=== PATIENT | female | born 1955 | race Caucasian/White ===

== ENCOUNTER 2017-04-18 15:35 | Emergency (ER) | payer MEDICARE, MEDICAID ==
--- NOTE | 2017-04-18 16:24 | EDM.PDOC ---
ED HPI GENERAL MEDICAL PROBLEM - General Chief Complaint: General Stated Complaint: increased anxiety Time Seen by Provider: 04/18/17 15:55 Source of Information: Reports: Patient History Limitations: Reports: No Limitations - History of Present Illness INITIAL COMMENTS - FREE TEXT/NARRATIVE: Patient is here for help with anxiety exacerbation. Granddaughter recently while riding her bike, is tomorrow. Patient told by daughter that she was not welcome at . Patient says that her usual 1mg Ativan TID PRN is not helping. Denies being suicidal or homicidal. No other complaints or health change reported. Denies other psych changes such as hallucinations/hearing voices. She feels very stressed and is tearful. - Related Data Allergies Allergy/AdvReac Type Severity Reaction Status Date / Time allopurinol Allergy Renal Verified 04/18/17 15:48 Insufficiency amoxicillin [Amoxicillin] Allergy Hypertensio Verified 04/18/17 15:48 n ampicillin Allergy Hypertensio Verified 04/18/17 15:48 n atorvastatin [From Lipitor] Allergy Cannot Verified 04/18/17 15:48 Remember azithromycin Allergy Burning on Verified 04/18/17 15:48 [From Zithromax Z-Dangelo] Urination codeine Allergy Abdominal Verified 04/18/17 15:48 Pain metaxalone [From Skelaxin] Allergy Itching Verified 04/18/17 15:48 Home Meds: Home Meds LORazepam [Ativan] 1 mg PO TID PRN 09/26/13 [History] Cholecalciferol (Vitamin D3) [Vitamin D3] 2,000 units PO QAM 10/07/13 [History] amLODIPine [Norvasc] 10 mg PO QAM 10/07/13 [History] Magnesium Oxide/Mag AA Chelate [Magnesium] 300 mg PO QPM 12/23/15 [History] Metoprolol Tartrate [Lopressor] 100 mg PO BID 12/23/15 [History] Cyanocobalamin (Vitamin B-12) [Vitamin B-12] 1,000 mcg IM ASDIRECTED 03/15/16 [ History] Omeprazole 20 mg PO BIDAC #60 cap.cr 06/10/16 [Rx] Aspirin 81 mg PO BRK 08/23/16 [History] Multivitamin [Multi-Day Vitamins] 1 each PO DAILY 08/23/16 [History] Zolpidem Tartrate [Zolpidem Tartrate] 10 mg PO TID 04/18/17 [History] Past Medical History HEENT History: Reports: Impaired Vision, Sinusitis, Other (See Below) Other HEENT History: Reading glasses Cardiovascular History: Reports: Arrhythmia, High Cholesterol, Hypertension, Other (See Below) Other Cardiovascular History: Nonspecific tachycardia, hyperlipidemia controlled with diet with previous gastric bypass Respiratory History: Reports: COPD, Intubation, Previous, Sleep Apnea, Other ( See Below) Other Respiratory History: COPD by chest x-ray with negative PFTs, not using oxygen or CPAP for her sleep apnea Gastrointestinal History: Reports: Cholelithiasis, Chronic Constipation, Gastritis, GERD, Hiatal Hernia Genitourinary History: Reports: Chronic Renal Insuffiency, Renal Calculus, UTI, Recurrent, Other (See Below) Other Genitourinary History: Renal insufficiency from allopurinol in the past however resolved at this time, right sided urolithiasis initially diagnosed on with spontaneous passage 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: Endometriosis, Other OB/BYN History: Endometriosis requiring surgery, surgical menopause, Full term without complications during pregnancies or deliveries Musculoskeletal History: Reports: Arthritis, Back Pain, Chronic, Fibromyalgia, Gout, Neck Pain, Chronic, Osteoarthritis, Osteoporosis, RA Neurological History: Reports: Concussion, Other (See Below) Other Neuro History: 2 previous head concussions initially at about age 19 then in about 1990 Psychiatric History: Reports: Anxiety, Depression, Panic Attack Endocrine/Metabolic History: Reports: Diabetes, Type II, Multinodular Thyroid, Obesity/BMI 30+, Osteoporosis, Other (See Below) Other Endocrine/Metabolic History: AODM previously treated however now diet controlled after gastric bypass, multinodular thyroid diagnosed on 04/18/13 with every 6 month thyroid ultrasound at this time Hematologic History: Reports: B12 Deficiency, Other (See Below) Other Hematologic History: Note Gastric bypass Immunologic History: Reports: None. Denies: AIDS, HIV, SLE Oncologic (Cancer) History: Reports: None. Denies: Basal Cell Carcinoma, Cervix , Hodgkin's Lymphoma, Leukemia, Lymphoma, Malignant Melanoma, Metastatic, Non- Hodgkin's Lymphoma Dermatologic History: Reports: Urticaria, Other (See Below) Other Dermatologic History: Recurrent urticaria since 05/11/16 - Infectious Disease History Infectious Disease History: Reports: Chicken Pox - Past Surgical History HEENT Surgical History: Reports: Adenoidectomy, Oral Surgery, Tonsillectomy, Other (See Below) GI Surgical History: Reports: Appendectomy, Bariatric Procedure, Cholecystectomy , EGD, Lysis of Adhesions, Other (See Below) Female Surgical History: Reports: Breast Biopsy, D&C, Endometrial Ablation, Hysterectomy, Salpingo-Oophorectomy, Tubal Ligation, Other (See Below) Endocrine Surgical History: Reports: Thyroid Biopsy, Other (See Below) Musculoskeletal Surgical History: Reports: Carpal Tunnel, Shoulder Surgery, Other (See Below) Oncologic Surgical History: Reports: Biopsy of Breast, Other (See Below) - Past Imaging History Past Imaging History: Reports: Bone Scan, Cardiac Echo, CAT Scan, Cystoscopy, DEXA Scan, Mammogram, PFT, Stress Testing, Ultrasound, Venous Doppler Social & Family History - Tobacco Use Smoking Status *Q: Never Smoker Second Hand Smoke Exposure: No - Caffeine Use Caffeine Use: Reports: None. Denies: Coffee, Energy Drinks, Soda, Tea - Alcohol Use Days Per Week of Alcohol Use: 0 (No previous DWIs, problems with alcohol abuse, etc.) Number of Drinks Per Day: 0 Total Drinks Per Week: 0 - Recreational Drug Use Recreational Drug Use: No Drug Use in Last 12 Months: No - Living Situation & Occupation Living situation: Reports: Occupation: Disabled ED ROS GENERAL - Review of Systems Review Of Systems: ROS reveals no pertinent complaints other than HPI. ED EXAM, GENERAL - Physical Exam Exam: See Below Exam Limited By: No Limitations General Appearance: Alert, Obese, Other (tearful. ) Eye Exam: Bilateral Eye: EOMI, PERRL Head: Atraumatic, Normocephalic Neck: Supple, Full Range of Motion Respiratory/Chest: No Respiratory Distress Neurological: Alert, Oriented, Normal Cognition, Normal Gait Psychiatric: Tearful Skin Exam: Warm, Dry, Intact, Normal Color Course - Vital Signs Last Recorded V/S: Last Vital Signs Temp 36.8 C 04/18/17 15:48 Pulse 91 04/18/17 15:48 Resp 20 04/18/17 15:48 BP 141/83 H 04/18/17 15:48 Pulse Ox 97 04/18/17 15:48 - Re-Assessments/Exams Free Text/Narrative Re-Assessment/Exam: 04/18/17 16:34 Time spent sitting with and visiting with patient. She received news that she would be allowed to attend the tomorrow. This helped significantly with patient's complaint. She did receive an ER stock bottle of Valium 10mg tabs. She is to try to substitute Valium for Ativan at 5mg dose over the next few days and see if it helps her acute anxiety reaction to the and of her granddaughter. She may then resume her usual Ativan PRN. Patient is agreeable with this plan. Departure - Departure Time of Disposition: 16:22 Disposition: Home, Self-Care 01 Condition: Good Clinical Impression: Mixed anxiety and depressive disorder - Discharge Information Forms: ED Department Discharge Additional Instructions: Hold Ativan and instead try the Valium for your anxiety over the next few days. You should start with 1/2 a tablet for the dose. Take it once every 8-12 hours as needed for anxiety. You may restart the Ativan after you are through with the Valium. Follow up as needed if you have worsening problems.
== END 2017-04-18 16:40 | disposition home or self-care (01) ==
LOC: LL.ED 15:35
CPT/HCPCS: 99283

== ENCOUNTER 2018-02-07 18:49 | Emergency (ER) | payer MEDICARE, MEDICAID ==
[2018-02-07 19:12] VITALS: BP 142/65
--- NOTE | 2018-02-07 20:19 | EDM.PDOC ---
ED HPI GENERAL MEDICAL PROBLEM - General Chief Complaint: Lower Extremity Injury/Pain Stated Complaint: Right ankle pain/lump Time Seen by Provider: 02/07/18 18:55 Source of Information: Reports: Patient History Limitations: Reports: No Limitations - History of Present Illness INITIAL COMMENTS - FREE TEXT/NARRATIVE: Patient is a 62-year-old who is well known to myself was at the barn and affect was leaving the barn and she stopped to clean her bruits and developed severe pain on her right foot she developed a little lump on the medial aspect of the ankle Onset: Sudden Duration: Minutes:, Intermittent Location: Reports: Lower Extremity, Right Right Ankle Pain Score (Numeric/FACES): 3 - Related Data Allergies Allergy/AdvReac Type Severity Reaction Status Date / Time allopurinol Allergy Renal Verified 02/07/18 18:51 Insufficiency amoxicillin [Amoxicillin] Allergy Hypertensio Verified 02/07/18 18:51 n ampicillin Allergy Hypertensio Verified 02/07/18 18:51 n atorvastatin [From Lipitor] Allergy Cannot Verified 02/07/18 18:51 Remember azithromycin Allergy Burning on Verified 02/07/18 18:51 [From Zithromax Z-Dangelo] Urination codeine Allergy Abdominal Verified 02/07/18 18:51 Pain metaxalone [From Skelaxin] Allergy Itching Verified 02/07/18 18:51 Home Meds: Home Meds LORazepam [Ativan] 1 mg PO TID PRN 09/26/13 [History] Cholecalciferol (Vitamin D3) [Vitamin D3] 2,000 units PO QAM 10/07/13 [History] amLODIPine [Norvasc] 10 mg PO QAM 10/07/13 [History] Magnesium Oxide/Mag AA Chelate [Magnesium] 300 mg PO QPM 12/23/15 [History] Metoprolol Tartrate [Lopressor] 100 mg PO BID 12/23/15 [History] Cyanocobalamin (Vitamin B-12) [Vitamin B-12] 1,000 mcg IM ASDIRECTED 03/15/16 [ History] Omeprazole 20 mg PO BIDAC #60 cap.cr 06/10/16 [Rx] Aspirin 81 mg PO BRK 08/23/16 [History] Multivitamin [Multi-Day Vitamins] 1 each PO DAILY 08/23/16 [History] Zolpidem Tartrate 7.5 mg PO BEDTIME 04/18/17 [History] Past Medical History HEENT History: Reports: Impaired Vision, Sinusitis, Other (See Below) Other HEENT History: Reading glasses Cardiovascular History: Reports: Arrhythmia, High Cholesterol, Hypertension, Other (See Below) Other Cardiovascular History: Nonspecific tachycardia, hyperlipidemia controlled with diet with previous gastric bypass Respiratory History: Reports: COPD, Intubation, Previous, Sleep Apnea, Other ( See Below) Other Respiratory History: COPD by chest x-ray with negative PFTs, not using oxygen or CPAP for her sleep apnea Gastrointestinal History: Reports: Cholelithiasis, Chronic Constipation, Gastritis, GERD, Hiatal Hernia Genitourinary History: Reports: Chronic Renal Insuffiency, Renal Calculus, UTI, Recurrent, Other (See Below) Other Genitourinary History: Renal insufficiency from allopurinol in the past however resolved at this time, right sided urolithiasis initially diagnosed on with spontaneous passage 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: Endometriosis, Other OB/BYN History: Endometriosis requiring surgery, surgical menopause, Full term without complications during pregnancies or deliveries Musculoskeletal History: Reports: Arthritis, Back Pain, Chronic, Fibromyalgia, Gout, Neck Pain, Chronic, Osteoarthritis, Osteoporosis, RA Neurological History: Reports: Concussion, Other (See Below) Other Neuro History: 2 previous head concussions initially at about age 19 then in about 1990 Psychiatric History: Reports: Anxiety, Depression, Panic Attack Endocrine/Metabolic History: Reports: Diabetes, Type II, Multinodular Thyroid, Obesity/BMI 30+, Osteoporosis, Other (See Below) Other Endocrine/Metabolic History: AODM previously treated however now diet controlled after gastric bypass, multinodular thyroid diagnosed on 04/18/13 with every 6 month thyroid ultrasound at this time Hematologic History: Reports: B12 Deficiency, Other (See Below) Other Hematologic History: Note Gastric bypass Immunologic History: Reports: None Oncologic (Cancer) History: Reports: None Dermatologic History: Reports: Urticaria, Other (See Below) Other Dermatologic History: Recurrent urticaria since 05/11/16 - Infectious Disease History Infectious Disease History: Reports: Chicken Pox - Past Surgical History Head Surgeries/Procedures: Reports: None HEENT Surgical History: Reports: Adenoidectomy, Oral Surgery, Tonsillectomy, Other (See Below) GI Surgical History: Reports: Appendectomy, Bariatric Procedure, Cholecystectomy , EGD, Lysis of Adhesions, Other (See Below) Female Surgical History: Reports: Breast Biopsy, D&C, Endometrial Ablation, Hysterectomy, Salpingo-Oophorectomy, Tubal Ligation, Other (See Below) Endocrine Surgical History: Reports: Thyroid Biopsy, Other (See Below) Musculoskeletal Surgical History: Reports: Carpal Tunnel, Shoulder Surgery, Other (See Below) Oncologic Surgical History: Reports: Biopsy of Breast, Other (See Below) - Past Imaging History Past Imaging History: Reports: Bone Scan, Cardiac Echo, CAT Scan, Cystoscopy, DEXA Scan, Mammogram, PFT, Stress Testing, Ultrasound, Venous Doppler Social & Family History - Caffeine Use Caffeine Use: Reports: None - Living Situation & Occupation Living situation: Reports: Occupation: Disabled Review of Systems - Review of Systems Review Of Systems: See Below Constitutional: Reports: No Symptoms Eyes: Reports: No Symptoms Ears: Reports: No Symptoms Nose: Reports: No Symptoms Mouth/Throat: Reports: No Symptoms Respiratory: Reports: No Symptoms Cardiovascular: Reports: No Symptoms GI/Abdominal: Reports: No Symptoms Genitourinary: Reports: No Symptoms Musculoskeletal: Reports: Leg Pain (Right) Skin: Reports: No Symptoms Neurological: Reports: No Symptoms Psychiatric: Reports: No Symptoms ED EXAM, GENERAL - Physical Exam Exam: See Below Exam Limited By: No Limitations General Appearance: Alert, WD/WN, No Apparent Distress Ears: Normal External Exam, Normal Canal, Hearing Grossly Normal, Normal TMs Ear Exam: Bilateral Ear: Auricle Normal, Canal Normal, TM normal Nose: Normal Inspection, Normal Mucosa, No Blood Throat/Mouth: Normal Inspection, Normal Lips, Normal Teeth, Normal Gums, Normal Oropharynx, Normal Voice, No Airway Compromise Head: Atraumatic, Normocephalic Neck: Normal Inspection, Supple, Non-Tender, Full Range of Motion Respiratory/Chest: No Respiratory Distress, Lungs Clear, Normal Breath Sounds, No Accessory Muscle Use, Chest Non-Tender Cardiovascular: Normal Peripheral Pulses, Regular Rate, Rhythm, No Edema, No Gallop, No JVD, No Murmur, No Rub GI/Abdominal: Normal Bowel Sounds, Soft, Non-Tender, No Organomegaly, No Distention, No Abnormal Bruit, No Mass (Female) Exam: Deferred Rectal (Female) Exam: Deferred Back Exam: Normal Inspection, Full Range of Motion, NT Extremities: Leg Pain (Right ankle pain x-ray negative) Neurological: Alert, Oriented, CN II-XII Intact, Normal Cognition, Normal Gait, Normal Reflexes, No Motor/Sensory Deficits Psychiatric: Normal Affect, Normal Mood Lymphatic: No Adenopathy Course - Vital Signs Last Recorded V/S: Last Vital Signs Temp 98.2 F 02/07/18 19:10 Pulse 78 02/07/18 19:10 Resp 16 02/07/18 19:10 BP 142/65 H 02/07/18 19:10 Pulse Ox 97 02/07/18 19:10 - Orders/Labs/Meds Orders: Active Orders 24 hr Category Date Time Status Ankle Min 3V Rt [CR] Stat Exams 02/07/18 19:28 Taken Departure - Departure Time of Disposition: 20:18 Disposition: Home, Self-Care 01 Condition: Fair Clinical Impression: Rupture of muscle - Discharge Information Instructions: Muscle Strain, [id number] Referrals: Claude Carlos MD [Primary Care Provider] - Care Plan Goals: Patient will be going home on a air splint she is to use it until better follow- up in the office as needed - My Orders Last 24 Hours: My Active Orders 02/07/18 19:28 Ankle Min 3V Rt [CR] Stat - Assessment/Plan Last 24 Hours: My Active Orders 02/07/18 19:28 Ankle Min 3V Rt [CR] Stat
== END 2018-02-07 20:30 | disposition home or self-care (01) ==
LOC: LL.ED 18:49
DX: M62.171 Other rupture of muscle (nontraumatic), right ankle and foot (principal); I12.9 Hypertensive chronic kidney disease with stage 1 through stage 4 chronic kidney disease, or unspecified chronic kidney disease; N18.9 Chronic kidney disease, unspecified; E11.22 Type 2 diabetes mellitus with diabetic chronic kidney disease; E78.00 Pure hypercholesterolemia, unspecified; Z88.1 Allergy status to other antibiotic agents; Z88.5 Allergy status to narcotic agent; Z88.8 Allergy status to other drugs, medicaments and biological substances; Z79.899 Other long term (current) drug therapy; Z79.82 Long term (current) use of aspirin
CPT/HCPCS: 73610-RT; 99283

== ENCOUNTER 2018-03-21 16:46 | Emergency (ER) | payer MEDICARE, MEDICAID ==
[2018-03-21 16:51] VITALS: BP 150/66
[2018-03-21] MEDS ORDERED: GI Cocktail Oral Solution 30 ML PO ONE (17:05)
[2018-03-21] MEDS ORDERED: Sodium Chloride 0.9% 10 ML Syringe FLUSH PRN (17:05)
[2018-03-21] MEDS ORDERED: Sodium Chloride 0.9% 1,000 ML IV ONE (17:50)
[2018-03-21 17:54] LABS: CHLORIDE,CL 105 mmol/L (98-107); SODIUM,NA 140 mmol/L (136-145)
--- NOTE | 2018-03-21 18:05 | EDM.PDOC ---
ED HPI GENERAL MEDICAL PROBLEM - General Chief Complaint: General Stated Complaint: hot flashes Time Seen by Provider: 03/21/18 17:21 Source of Information: Reports: Patient History Limitations: Reports: No Limitations - History of Present Illness INITIAL COMMENTS - FREE TEXT/NARRATIVE: Patient comes to ER complaining of approximately 8 episodes of "hot flashes" today, the longest of which was approximately 5 minutes. She says that she has not had hot flashes like this before. Originally she came in complaining of SOB to nurse. She then recanted that when examiner was interviewing her and said that she did not have shortness of breath. She amended her complaint to say that it felt like she had epigastric nausea at the time of the hot flash. Other accompanying complaints included feeling tightness/throbbing sensation at back of head as well as left side of tongue feeling a bit numb at same time of hot flash. She did go on to say that she had some nerve damage on the left side when they surgically removed her thyroid years ago and left sided tongue numbness is not a new problem. All of the above went away when the hot flash went away. ROS performed. She did say that she started 10mg Celexa daily last Thursday. No other medication/supplement changes. No food changes. She has felt more tired than usual today. She did have a small amount of loose stools. No other acute changes reported. - Related Data Allergies Allergy/AdvReac Type Severity Reaction Status Date / Time allopurinol Allergy Renal Verified 03/21/18 16:56 Insufficiency amoxicillin [Amoxicillin] Allergy Hypertensio Verified 03/21/18 16:56 n ampicillin Allergy Hypertensio Verified 03/21/18 16:56 n atorvastatin [From Lipitor] Allergy Cannot Verified 03/21/18 16:56 Remember azithromycin Allergy Burning on Verified 03/21/18 16:56 [From Zithromax Z-Dangelo] Urination codeine Allergy Abdominal Verified 03/21/18 16:56 Pain metaxalone [From Skelaxin] Allergy Itching Verified 03/21/18 16:56 Home Meds: Home Meds LORazepam [Ativan] 1 mg PO TID PRN 09/26/13 [History] Cholecalciferol (Vitamin D3) [Vitamin D3] 2,000 units PO QAM 10/07/13 [History] amLODIPine [Norvasc] 10 mg PO QAM 10/07/13 [History] Magnesium Oxide/Mag AA Chelate [Magnesium] 300 mg PO QPM 12/23/15 [History] Metoprolol Tartrate [Lopressor] 100 mg PO BID 12/23/15 [History] Cyanocobalamin (Vitamin B-12) [Vitamin B-12] 1,000 mcg IM ASDIRECTED 03/15/16 [ History] Omeprazole 20 mg PO BIDAC #60 cap.cr 06/10/16 [Rx] Aspirin 81 mg PO BRK 08/23/16 [History] Multivitamin [Multi-Day Vitamins] 1 each PO DAILY 08/23/16 [History] Zolpidem Tartrate 7.5 mg PO BEDTIME 04/18/17 [History] Ca Carbonate/Vitamin D3/Vit K [Calcium + D Soft Chewable Tab] 1 each PO DAILY [History] Citalopram Hydrobromide [Celexa] 1 tab PO QAM 03/21/18 [History] Past Medical History HEENT History: Reports: Impaired Vision, Sinusitis, Other (See Below) Other HEENT History: Reading glasses Cardiovascular History: Reports: Arrhythmia, High Cholesterol, Hypertension, Other (See Below) Other Cardiovascular History: Nonspecific tachycardia, hyperlipidemia controlled with diet with previous gastric bypass Respiratory History: Reports: COPD, Intubation, Previous, Sleep Apnea, Other ( See Below) Other Respiratory History: COPD by chest x-ray with negative PFTs, not using oxygen or CPAP for her sleep apnea Gastrointestinal History: Reports: Cholelithiasis, Chronic Constipation, Gastritis, GERD, Hiatal Hernia Genitourinary History: Reports: Chronic Renal Insuffiency, Renal Calculus, UTI, Recurrent, Other (See Below) Other Genitourinary History: Renal insufficiency from allopurinol in the past however resolved at this time, right sided urolithiasis initially diagnosed on with spontaneous passage 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: Reports: Endometriosis, Other OB/BYN History: Endometriosis requiring surgery, surgical menopause, Full term without complications during pregnancies or deliveries Musculoskeletal History: Reports: Arthritis, Back Pain, Chronic, Fibromyalgia, Gout, Neck Pain, Chronic, Osteoarthritis, Osteoporosis, RA Neurological History: Reports: Concussion, Other (See Below) Other Neuro History: 2 previous head concussions initially at about age 19 then in about 1990 Psychiatric History: Reports: Anxiety, Depression, Panic Attack Endocrine/Metabolic History: Reports: Diabetes, Type II, Multinodular Thyroid, Obesity/BMI 30+, Osteoporosis, Other (See Below) Other Endocrine/Metabolic History: AODM previously treated however now diet controlled after gastric bypass, multinodular thyroid diagnosed on 04/18/13 with every 6 month thyroid ultrasound at this time Hematologic History: Reports: B12 Deficiency, Other (See Below) Other Hematologic History: Note Gastric bypass Immunologic History: Reports: None Oncologic (Cancer) History: Reports: None Dermatologic History: Reports: Urticaria, Other (See Below) Other Dermatologic History: Recurrent urticaria since 05/11/16 - Infectious Disease History Infectious Disease History: Reports: Chicken Pox - Past Surgical History Head Surgeries/Procedures: Reports: None HEENT Surgical History: Reports: Adenoidectomy, Oral Surgery, Tonsillectomy, Other (See Below) GI Surgical History: Reports: Appendectomy, Bariatric Procedure, Cholecystectomy , EGD, Lysis of Adhesions, Other (See Below) Female Surgical History: Reports: Breast Biopsy, D&C, Endometrial Ablation, Hysterectomy, Salpingo-Oophorectomy, Tubal Ligation, Other (See Below) Endocrine Surgical History: Reports: Thyroid Biopsy, Other (See Below) Musculoskeletal Surgical History: Reports: Carpal Tunnel, Shoulder Surgery, Other (See Below) Oncologic Surgical History: Reports: Biopsy of Breast, Other (See Below) - Past Imaging History Past Imaging History: Reports: Bone Scan, Cardiac Echo, CAT Scan, Cystoscopy, DEXA Scan, Mammogram, PFT, Stress Testing, Ultrasound, Venous Doppler Social & Family History - Caffeine Use Caffeine Use: Reports: None - Recreational Drug Use Recreational Drug Use: No Drug Use in Last 12 Months: No - Living Situation & Occupation Living situation: Reports: Occupation: Disabled ED [facility] - Review of Systems Review Of Systems: See Below Constitutional: Reports: Fatigue. Denies: Fever, Chills, Malaise, Weakness, Night Sweats, Diaphoresis, Decreased Appetite, Weight Loss HEENT: Reports: Other (tongue numb in back left during hot flashes) Respiratory: Reports: No Symptoms Cardiovascular: Reports: No Symptoms. Denies: Chest Pain GI/Abdominal: Reports: Diarrhea, Nausea (during hot flashes). Denies: Abdominal Pain, Decreased Appetite, Difficulty Swallowing, Distension, Hematemesis, Hematochezia, Vomiting : Reports: No Symptoms Musculoskeletal: Reports: Other (tightness in back of head/neck during hot flashes) Skin: Reports: No Symptoms Neurological: Reports: No Symptoms. Denies: Headache Psychiatric: Reports: No Symptoms Hematologic/Lymphatic: Reports: No Symptoms ED EXAM, GENERAL - Physical Exam Exam: See Below Exam Limited By: No Limitations General Appearance: Alert, WD/WN, No Apparent Distress, Obese Eye Exam: Bilateral Eye: EOMI, Normal Inspection, PERRL Ears: Normal External Exam, Normal Canal, Hearing Grossly Normal, Normal TMs Nose: Normal Inspection Throat/Mouth: Normal Inspection, Normal Lips, Normal Voice, No Airway Compromise Head: Atraumatic, Normocephalic Neck: Normal Inspection, Supple, Non-Tender, Full Range of Motion. No: Carotid Bruit, Lymphadenopathy (L), Lymphadenopathy (R) Respiratory/Chest: No Respiratory Distress, Lungs Clear, Normal Breath Sounds, No Accessory Muscle Use, Chest Non-Tender Cardiovascular: Normal Peripheral Pulses, Regular Rate, Rhythm, No Murmur Peripheral Pulses: 2+: Radial (L), Radial (R), Dorsalis Pedis (L), Dorsalis Pedis (R) GI/Abdominal: Normal Bowel Sounds, Soft, Non-Tender, No Distention (Female) Exam: Deferred Rectal (Female) Exam: Deferred Back Exam: Normal Inspection Extremities: Normal Inspection, Normal Range of Motion, Non-Tender, Normal Capillary Refill Neurological: Alert, Oriented, CN II-XII Intact, Normal Cognition, Normal Gait, No Motor/Sensory Deficits Psychiatric: Normal Affect, Normal Mood Skin Exam: Warm, Dry, Intact, Normal Color, No Rash EKG INTERPRETATION EKG Date: 03/21/18 Time: 17:16 Rhythm: Other (sinus) Rate (Beats/Min): 64 [place]: Normal P-Wave: Present QRS: Normal ST-T: Normal QT: Normal Comparison: Change From Previous EKG (had occasional PVCs noted, otherwise morphology similar) Course - Vital Signs Last Recorded V/S: Last Vital Signs Temp 36.4 C 03/21/18 16:48 Pulse 66 03/21/18 16:48 Resp 20 03/21/18 16:48 BP 150/66 H 03/21/18 16:48 Pulse Ox 100 03/21/18 16:48 - Orders/Labs/Meds Orders: Active Orders 24 hr Category Date Time Status EKG Documentation Completion [RC] ASDIRECTED Care 03/21/18 17:05 Active Chest 2V [CR] Stat Exams 03/21/18 17:03 Ordered UA W/MICROSCOPIC [URIN] Stat Lab 03/21/18 17:10 Ordered Sodium Chloride 0.9% [Normal Saline] 1,000 ml Med 03/21/18 17:50 Active IV .BOLUS Sodium Chloride 0.9% [Saline Flush] Med 03/21/18 17:05 Active 10 ml FLUSH ASDIRECTED PRN Saline Lock Insert [OM.PC] Routine Oth 03/21/18 17:05 Ordered Medication Orders Sodium Chloride (Normal Saline) 1,000 mls @ 500 mls/hr IV .BOLUS ONE Stop: 03/21/18 19:49 Last Admin: 03/21/18 19:17 Dose: 500 mls/hr Sodium Chloride (Saline Flush) 10 ml FLUSH ASDIRECTED PRN PRN Reason: Keep Vein Open Labs: Laboratory Tests 03/21/18 03/21/18 03/21/18 Range/Units 17:10 17:25 17:25 WBC 8.1 (4.0-10.2) K/uL RBC 4.76 (3.77-5.09) M/uL Hgb 14.1 (11.7-15.5) g/dL Hct 42.2 (34.0-46.0) % MCV 88.7 D (84.0-98.0) fL MCH 29.6 (28.2-33.3) pg MCHC 33.4 (31.7-36.0) g/dL RDW 13.3 (11.2-14.1) % Plt Count 209 (150-350) K/uL Neut % (Auto) 50.5 (45.0-80.0) % Lymph % (Auto) 36.8 (10.0-50.0) % [place] % (Auto) 7.8 (2.0-14.0) % Eos % (Auto) 4.7 (0.0-5.0) % Baso % (Auto) 0.2 (0.0-2.0) % Neut # (Auto) 4.07 (1.40-7.00) K/uL Lymph # (Auto) 2.97 (0.50-3.50) K/uL [place] # (Auto) 0.63 (0.00-1.00) K/uL Eos # (Auto) 0.38 (0.00-0.50) K/uL Baso # (Auto) 0.02 (0.00-0.20) K/uL D-Dimer, Quantitative (0-400) ng/mL Sodium 140 (136-145) mmol/L Potassium 3.5 (3.5-5.1) mmol/L Chloride 105 (98-107) mmol/L Carbon Dioxide 24.1 (21.0-32.0) mmol/L BUN 14 (7-18) mg/dL Creatinine 0.67 (0.51-1.17) mg/dL Est Cr Clr Drug Dosing 83.59 mL/min Estimated GFR (MDRD) > 60 mL/min Glucose 114 H (74-106) mg/dL Calcium 8.7 (8.5-10.1) mg/dL Total Bilirubin 0.4 (0.2-1.0) mg/dL AST 17 (15-37) U/L ALT 34 (12-78) U/L Alkaline Phosphatase 99 (46-116) IU/L Creatine Kinase 78 (26-308) U/L Creatine Kinase Index 1.4 (0.0-2.5) % CK-MB (CK-2) 1.10 (0.00-3.60) ng/mL Troponin I 0.000 (0.000-0.056) ng/mL NT-Pro-B Natriuret Pep 126 H (0-125) pg/mL Total Protein 7.4 (6.4-8.2) g/dL Albumin 3.8 (3.4-5.0) g/dL TSH, Ultra Sensitive (0.358-3.740) mIU/mL Specimen Type Urinvoid Urine Color Yellow Urine Appearance Clear Urine pH 5.5 (5.0-9.0) Ur Specific [place] >= 1.030 (1.005-1.030) Urine Protein Negative (NEGATIVE) mg/dL Urine Glucose (UA) Negative (NEGATIVE) mg/dL Urine Ketones Negative (NEGATIVE) mg/dL Urine Occult Blood Small H (NEGATIVE) Urine Nitrite Negative (NEGATIVE) Urine Bilirubin Negative (NEGATIVE) Urine Urobilinogen 0.2 (0.2-1.0) E.U./dL Ur Leukocyte Esterase Negative (NEGATIVE) Urine RBC 5-10 H /HPF Urine WBC 0-5 /HPF Ur Epithelial Cells Few /LPF Urine Bacteria Few (NONE TO FEW) /HPF 03/21/18 03/21/18 Range/Units 17:25 17:25 WBC (4.0-10.2) K/uL RBC (3.77-5.09) M/uL Hgb (11.7-15.5) g/dL Hct (34.0-46.0) % MCV (84.0-98.0) fL MCH (28.2-33.3) pg MCHC (31.7-36.0) g/dL RDW (11.2-14.1) % Plt Count (150-350) K/uL Neut % (Auto) (45.0-80.0) % Lymph % (Auto) (10.0-50.0) % [place] % (Auto) (2.0-14.0) % Eos % (Auto) (0.0-5.0) % Baso % (Auto) (0.0-2.0) % Neut # (Auto) (1.40-7.00) K/uL Lymph # (Auto) (0.50-3.50) K/uL [place] # (Auto) (0.00-1.00) K/uL Eos # (Auto) (0.00-0.50) K/uL Baso # (Auto) (0.00-0.20) K/uL D-Dimer, Quantitative 244 (0-400) ng/mL Sodium (136-145) mmol/L Potassium (3.5-5.1) mmol/L Chloride (98-107) mmol/L Carbon Dioxide (21.0-32.0) mmol/L BUN (7-18) mg/dL Creatinine (0.51-1.17) mg/dL Est Cr Clr Drug Dosing mL/min Estimated GFR (MDRD) mL/min Glucose (74-106) mg/dL Calcium (8.5-10.1) mg/dL Total Bilirubin (0.2-1.0) mg/dL AST (15-37) U/L ALT (12-78) U/L Alkaline Phosphatase (46-116) IU/L Creatine Kinase (26-308) U/L Creatine Kinase Index (0.0-2.5) % CK-MB (CK-2) (0.00-3.60) ng/mL Troponin I (0.000-0.056) ng/mL NT-Pro-B Natriuret Pep (0-125) pg/mL Total Protein (6.4-8.2) g/dL Albumin (3.4-5.0) g/dL TSH, Ultra Sensitive 3.224 (0.358-3.740) mIU/mL Specimen Type Urine Color Urine Appearance Urine pH (5.0-9.0) Ur Specific [place] (1.005-1.030) Urine Protein (NEGATIVE) mg/dL Urine Glucose (UA) (NEGATIVE) mg/dL Urine Ketones (NEGATIVE) mg/dL Urine Occult Blood (NEGATIVE) Urine Nitrite (NEGATIVE) Urine Bilirubin (NEGATIVE) Urine Urobilinogen (0.2-1.0) E.U./dL Ur Leukocyte Esterase (NEGATIVE) Urine RBC /HPF Urine WBC /HPF Ur Epithelial Cells /LPF Urine Bacteria (NONE TO FEW) /HPF Meds: Medications Generic Name Dose Route Start Last Admin Trade Name Freq PRN Reason Stop Dose Admin Sodium Chloride 1,000 mls @ 500 mls/hr 03/21/18 17:50 03/21/18 19:17 Normal Saline IV 03/21/18 19:49 500 mls/hr .BOLUS ONE Administration Sodium Chloride 10 ml 03/21/18 17:05 Saline Flush FLUSH ASDIRECTED PRN Keep Vein Open Discontinued Medications Generic Name Dose Route Start Last Admin Trade Name Freq PRN Reason Stop Dose Admin Al Hydroxide/Mg Hydroxide 30 ml 03/21/18 17:05 03/21/18 17:38 Gi Cocktail PO 03/21/18 17:06 Not Given ONETIME ONE - Re-Assessments/Exams Free Text/Narrative Re-Assessment/Exam: 03/21/18 19:58 Patient rested comfortably in ER during workup. Drinking, at some snacks. IV NS given when elevated specific gravity of UA noted. Patient admitted to not drinking a lot of fluid today. CBC/Chem/UA/troponin/CKMB/Ddimer/BNP/TSH performed. Overall unremarkable. BNP just a bit above normal level. Chest xray unremarkable. No specific etiology for patient's complaints identified. Cannot rule out possible side effect due to recently started Celexa. Differential discussed with patient. Plan at this time is for her to discontinue the Celexa for now and see if she has further episodes of hot flashes. She has only been on the medication for one week. She can retry the medication in another 1-2 weeks and see if similar hot flashes resurface. She is also to look for any other new changes over the next day or two that may indicate another etiology causing patient's episodes. She is in agreement with the above plan. Departure - Departure Time of Disposition: 21:00 Disposition: Home, Self-Care 01 Condition: Good Clinical Impression: Hot flashes, Feeling abnormal - Discharge Information Referrals: Claude Carlos MD [Primary Care Provider] - Forms: ED Department Discharge Additional Instructions: Consider stopping the Celexa for the next 1-2 weeks as discussed. See if hot flashes also stop. If they do, it could be that they are side effects of the new medication. If the hot flashes persist, or other new problems are noted, follow up as needed for re-evaluation. Recommend waiting a week or two before retrying Celexa and seeing if same hot flashes start again. - My Orders Last 24 Hours: My Active Orders 03/21/18 17:03 Chest 2V [CR] Stat 03/21/18 17:05 EKG Documentation Completion [RC] ASDIRECTED Sodium Chloride 0.9% [Saline Flush] 10 ml FLUSH ASDIRECTED PRN Saline Lock Insert [OM.PC] Routine 03/21/18 17:10 UA W/MICROSCOPIC [URIN] Stat 03/21/18 17:50 Sodium Chloride 0.9% [Normal Saline] 1,000 ml IV .BOLUS - Assessment/Plan Last 24 Hours: My Active Orders 03/21/18 17:03 Chest 2V [CR] Stat 03/21/18 17:05 EKG Documentation Completion [RC] ASDIRECTED Sodium Chloride 0.9% [Saline Flush] 10 ml FLUSH ASDIRECTED PRN Saline Lock Insert [OM.PC] Routine 03/21/18 17:10 UA W/MICROSCOPIC [URIN] Stat 03/21/18 17:50 Sodium Chloride 0.9% [Normal Saline] 1,000 ml IV .BOLUS
== END 2018-03-21 20:35 | disposition home or self-care (01) ==
LOC: LL.ED 16:46
DX: N95.1 Menopausal and female climacteric states (principal); E78.00 Pure hypercholesterolemia, unspecified; J44.9 Chronic obstructive pulmonary disease, unspecified; I12.9 Hypertensive chronic kidney disease with stage 1 through stage 4 chronic kidney disease, or unspecified chronic kidney disease; N18.9 Chronic kidney disease, unspecified; F32.9 Major depressive disorder, single episode, unspecified; E11.22 Type 2 diabetes mellitus with diabetic chronic kidney disease; F41.9 Anxiety disorder, unspecified; Z88.1 Allergy status to other antibiotic agents; Z88.8 Allergy status to other drugs, medicaments and biological substances; Z79.899 Other long term (current) drug therapy; Z79.82 Long term (current) use of aspirin
CPT/HCPCS: 36415; 71046; 80053; 81001; 82550; 82553; 83880; 84443; 84484; 85025; 85379; 93005; 96360; 99284; J7030

== ENCOUNTER 2019-01-22 18:53 | Emergency (ER) | payer MEDICARE, MEDICAID ==
[2019-01-22 19:03] VITALS: BP 131/80
[2019-01-22] MEDS ORDERED: methylPREDNISolone Acetate 40 MG/ML SDV IM ONE (19:23)
--- NOTE | 2019-01-22 19:30 | EDM.PDOC ---
ED HPI GENERAL MEDICAL PROBLEM - General Chief Complaint: Lower Extremity Injury/Pain Stated Complaint: L knee pain Time Seen by Provider: 01/22/19 19:00 Source of Information: Reports: Patient History Limitations: Reports: No Limitations - History of Present Illness INITIAL COMMENTS - FREE TEXT/NARRATIVE: Patient is a 63-year-old who is well known to myself has been seen multiple times in the clinic she's seen Dr. Sheets and Dr. Pereira secondary be of left knee pain and deterioration at this time patient was given synvig injections which and steroids which have helped Onset: Sudden Duration: Hour(s):, Recurring Location: Reports: Lower Extremity, Left Quality: Reports: Ache, Stabbing Severity: Moderate Improves with: Reports: Rest Worsens with: Reports: None Context: Reports: Trauma - Related Data Allergies Allergy/AdvReac Type Severity Reaction Status Date / Time allopurinol Allergy Renal Verified 01/22/19 19:03 Insufficiency amoxicillin [Amoxicillin] Allergy Hypertensio Verified 01/22/19 19:03 n ampicillin Allergy Hypertensio Verified 01/22/19 19:03 n atorvastatin [From Lipitor] Allergy Cannot Verified 01/22/19 19:03 Remember azithromycin Allergy Burning on Verified 01/22/19 19:03 [From Zithromax Z-Dangelo] Urination citalopram [From Celexa] Allergy Hallucinati Verified 01/22/19 19:03 ons codeine Allergy Abdominal Verified 01/22/19 19:03 Pain metaxalone [From Skelaxin] Allergy Itching Verified 01/22/19 19:03 Home Meds: Home Meds LORazepam [Ativan] 1 mg PO TID PRN 09/26/13 [History] Cholecalciferol (Vitamin D3) [Vitamin D3] 2,000 units PO QAM 10/07/13 [History] amLODIPine [Norvasc] 10 mg PO QAM 10/07/13 [History] Magnesium Oxide/Mag AA Chelate [Magnesium] 300 mg PO QPM 12/23/15 [History] Metoprolol Tartrate [Lopressor] 100 mg PO BID 12/23/15 [History] Cyanocobalamin (Vitamin B-12) [Vitamin B-12] 1,000 mcg IM ASDIRECTED 03/15/16 [ History] Omeprazole 20 mg PO BIDAC #60 cap.cr 06/10/16 [Rx] Aspirin 81 mg PO BRK 08/23/16 [History] Multivitamin [Multi-Day Vitamins] 1 each PO DAILY 08/23/16 [History] Zolpidem Tartrate 7.5 mg PO BEDTIME 04/18/17 [History] Ca Carbonate/Vitamin D3/Vit K [Calcium + D Soft Chewable Tab] 1 each PO DAILY [History] Melatonin 7.5 mg PO BEDTIME 07/19/18 [History] Triamcinolone Acetonide [Triamcinolone Acetonide 0.1% Crm] 1 applic TOP BID [History] Past Medical History HEENT History: Reports: Impaired Vision, Sinusitis, Other (See Below) Other HEENT History: Reading glasses. Cardiovascular History: Reports: Arrhythmia, High Cholesterol, Hypertension, PVD , Other (See Below) Other Cardiovascular History: Nonspecific tachycardia, hyperlipidemia controlled with diet with previous gastric bypass. Respiratory History: Reports: Bronchitis, Recurrent, COPD, Intubation, Previous , Pneumonia, Recurrent, Sleep Apnea, Other (See Below) Other Respiratory History: COPD by chest x-ray with negative PFTs, not using oxygen or CPAP for her sleep apnea Gastrointestinal History: Reports: Cholelithiasis, Chronic Constipation, Gastritis, GERD, Hiatal Hernia Genitourinary History: Reports: Chronic Renal Insuffiency, Renal Calculus, UTI, Recurrent, Other (See Below) Other Genitourinary History: Renal insufficiency from allopurinol in the past however resolved at this time, right sided urolithiasis initially diagnosed on with spontaneous passage PUMP ASSEMBLER History: Reports: Endometriosis, Other PUMP ASSEMBLER History: Endometriosis requiring surgery, surgical menopause, Full term without complications during pregnancies or deliveries Musculoskeletal History: Reports: Arthritis, Back Pain, Chronic, Fibromyalgia, Gout, Neck Pain, Chronic, Osteoarthritis, Osteoporosis, RA Neurological History: Reports: Concussion, Other (See Below) Other Neuro History: 2 previous head concussions initially at about age 19 then in about 1990 Psychiatric History: Reports: Anxiety, Depression, Panic Attack Endocrine/Metabolic History: Reports: Diabetes, Type II, Multinodular Thyroid, Obesity/BMI 30+, Osteoporosis, Other (See Below) Other Endocrine/Metabolic History: AODM previously treated however now diet controlled after gastric bypass, multinodular thyroid diagnosed on 7/22/13 with every 6 month thyroid ultrasound at this time Hematologic History: Reports: B12 Deficiency, Other (See Below) Other Hematologic History: Note Gastric bypass Immunologic History: Reports: None Oncologic (Cancer) History: Reports: None Dermatologic History: Reports: Urticaria, Other (See Below) Other Dermatologic History: Recurrent urticaria since 05/11/16 - Infectious Disease History Infectious Disease History: Reports: Chicken Pox, RSV - Past Surgical History Head Surgeries/Procedures: Reports: None HEENT Surgical History: Reports: Adenoidectomy, Oral Surgery, Tonsillectomy, Other (See Below) Other HEENT Surgeries/Procedures: Tonsillectomy and adenoidectomy at about age 5. Multiple teeth extractions. Cardiovascular Surgical History: Reports: None Respiratory Surgical History: Reports: None GI Surgical History: Reports: Appendectomy, Bariatric Procedure, Cholecystectomy , EGD, Lysis of Adhesions, Other (See Below) Other GI Surgeries/Procedures: Open Cholecystectomy with concurrent appendectomy in 1982. Gastric bypass in June 2010. Last EGD in 2010. Lysis of abdominal adhesions in May 2011. Female Surgical History: Reports: Breast Biopsy, D&C, Endometrial Ablation, Hysterectomy, Salpingo-Oophorectomy, Tubal Ligation, Other (See Below) Other Female Surgeries/Procedures: Breast biopsy for benign disease in 1986. Endometrial ablation with concurrent D&C secondary to endometriosis in 1984. Complete hysterectomy including bilateral salpingo-oophorectomy in 1985 secondary to endometriosis. Tubal ligation at age 22. Endocrine Surgical History: Reports: Thyroid Biopsy, Thyroidectomy, Other (See Below) Other Endocrine Surgeries/Procedures: Left sided partial thyroidectomy secondary to thyroid nodule with benign findings in June 2017. Thyroid biopsy in 2003. Neurological Surgical History: Reports: None Musculoskeletal Surgical History: Reports: Carpal Tunnel, Shoulder Surgery, Other (See Below) Other Musculoskeletal Surgeries/Procedures:: Bilateral carpal tunnel release in 1988. 5 previous left shoulder surgeries with last surgery in September 2017. Oncologic Surgical History: Reports: Biopsy of Breast, Other (See Below) Other Oncologic Surgeries/Procedures: Breast Biopsy for benign disease as above Dermatological Surgical History: Reports: None - Past Imaging History Past Imaging History: Reports: Bone Scan (Sternum and spine on 10/14/12), Cardiac Echo (10/30/15 with ejection fraction of 6065 percent.), CAT Scan (CT of the head on 10/21/16. CT of the abdomen and pelvis on 10/26/14 and 09/17/14.), Cystoscopy (In about 1981), DEXA Scan (07/19/13), Mammogram (Last mammogram on 07/23/17.), PFT (10/23/15), Stress Testing (Cardiolite stress test on 03/18/10 with ejection fraction of 74%.), Ultrasound (Last thyroid ultrasound on 03/02/17.) , Venous Doppler (Venous Doppler study of the right leg on 01/12/17 with previous evaluation of the right leg on 08/16/14.). Denies: Angiography Social & Family History - Family History HEENT: Reports: Macular Degeneration, Other (See Below) Other HEENT Family History: Maternal aunt with macular degeneration. Cardiac: Reports: CAD, MN, Other (See Below) Other Cardiac Family History: Mother with MN in her low 50s. Father with CABG 4 in his mid 60s with no history of MN. Respiratory: Reports: None GI: Reports: GI bleed, PUD, Other (See Below) Other GI Family History: Maternal grandmother with peptic ulcer disease and upper GI bleed in her 70s. : Reports: None OBGYN: Reports: Endometrial Ablation Musculoskeletal: Reports: Arthritis, Gout, Osteoarthritis, Other (See Below) Other Musculoskeletal Family History: Mother with history of gout. Neurological: Reports: None Psychiatric: Reports: None Endocrine/Metabolic: Reports: IDDM, Other (See Below) Other Endocrine/Metabolic Family History: Parents with IDDM. Hematologic: Reports: None Immunologic: Reports: None Dermatologic: Reports: None Oncologic: Reports: Metastatic, Pancreatic, Skin, Other (See Below) Other Oncologic Family History: Mother with fatal pancreatic cancer with hepatic metastases at age 89. Mother with unknown type of skin cancer. 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.) Review of Systems - Review of Systems Review Of Systems: See Below Constitutional: Reports: No Symptoms Eyes: Reports: No Symptoms Ears: Reports: No Symptoms Nose: Reports: No Symptoms Mouth/Throat: Reports: No Symptoms Respiratory: Reports: No Symptoms Cardiovascular: Reports: No Symptoms GI/Abdominal: Reports: No Symptoms Genitourinary: Reports: No Symptoms Musculoskeletal: Reports: No Symptoms Skin: Reports: No Symptoms Neurological: Reports: No Symptoms Psychiatric: Reports: No Symptoms ED EXAM, GENERAL - Physical Exam Exam: See Below Exam Limited By: No Limitations General Appearance: Alert, WD/WN, No Apparent Distress Ears: Normal External Exam, Normal Canal, Hearing Grossly Normal, Normal TMs Ear Exam: Bilateral Ear: Auricle Normal, Canal Normal, TM normal Nose: Normal Inspection, Normal Mucosa, No Blood Throat/Mouth: Normal Inspection, Normal Lips, Normal Teeth, Normal Gums, Normal Oropharynx, Normal Voice, No Airway Compromise Head: Atraumatic, Normocephalic Neck: Normal Inspection, Supple, Non-Tender, Full Range of Motion Respiratory/Chest: No Respiratory Distress, Lungs Clear, Normal Breath Sounds, No Accessory Muscle Use, Chest Non-Tender Cardiovascular: Normal Peripheral Pulses, Regular Rate, Rhythm, No Edema, No Gallop, No JVD, No Murmur, No Rub GI/Abdominal: Normal Bowel Sounds, Soft, Non-Tender, No Organomegaly, No Distention, No Abnormal Bruit, No Mass Back Exam: Normal Inspection, Full Range of Motion, NT Extremities: Leg Pain (Left), Limited Range of Motion (Left leg), Other ( Degenerative joint disease) Neurological: Alert, Oriented, CN II-XII Intact, Normal Cognition, Normal Gait, Normal Reflexes, No Motor/Sensory Deficits Psychiatric: Normal Affect, Normal Mood Skin Exam: Warm, Dry, Intact, Normal Color, No Rash Lymphatic: No Adenopathy ED TRAUMA EXTREMITY PROCEDURES - Additional/Other Procedure(s) Other (Free Text) Procedure(s): Procedure patient was seen and evaluated in the ER left knee pain diagnosis internal derangement of left knee possible old meniscus injury at this time we will go ahead and injected with 40 of Depo-Medrol to obtain relieve pain area was prepped and draped in the usual standard form once with the area was prepped 2% lidocaine was injected into the skin and then using using Depo- Medrol 40 mg mixed with lidocaine 1%2mlooflidocaine were injected intra- articular Course - Vital Signs Last Recorded V/S: Last Vital Signs Temp 97.4 F 01/22/19 18:55 Pulse 67 01/22/19 18:55 Resp 16 01/22/19 18:55 BP 131/80 01/22/19 18:55 Pulse Ox 99 01/22/19 18:55 - Orders/Labs/Meds Orders: Active Orders 24 hr Category Date Time Status Lidocaine 1% [Xylocaine-MPF 1%] Med 01/22/19 19:23 Once 5 ml INJECT ONETIME ONE methylPREDNISolone acetate [Depo-Medrol] Med 01/22/19 19:23 Once 40 mg IM ONETIME ONE Departure - Departure Time of Disposition: 19:42 Disposition: Home, Self-Care 01 Condition: Fair Clinical Impression: Internal derangement of left knee, Sprain of knee - Discharge Information *PRESCRIPTION DRUG MONITORING PROGRAM REVIEWED*: No *COPY OF PRESCRIPTION DRUG MONITORING REPORT IN PATIENT NITISH: No Instructions: Knee Sprain, Adult, [id number] Referrals: Claude Carlos MD [Primary Care Provider] - Care Plan Goals: Patient seen and examined and will be treated internal derangement of knee we will go ahead and treat her with Depo-Medrol 40mg with 2 mL of 1% lidocaine patient will be sent home - My Orders Last 24 Hours: My Active Orders 01/22/19 19:23 Lidocaine 1% [Xylocaine-MPF 1%] 5 ml INJECT ONETIME ONE methylPREDNISolone acetate [Depo-Medrol] 40 mg IM ONETIME ONE - Assessment/Plan Last 24 Hours: My Active Orders 01/22/19 19:23 Lidocaine 1% [Xylocaine-MPF 1%] 5 ml INJECT ONETIME ONE methylPREDNISolone acetate [Depo-Medrol] 40 mg IM ONETIME ONE
== END 2019-01-22 19:55 | disposition home or self-care (01) ==
LOC: LL.ED 18:53
DX: M23.92 Unspecified internal derangement of left knee (principal); S83.92XA Sprain of unspecified site of left knee, initial encounter; E78.00 Pure hypercholesterolemia, unspecified; I12.0 Hypertensive chronic kidney disease with stage 5 chronic kidney disease or end stage renal disease; J44.9 Chronic obstructive pulmonary disease, unspecified; N18.9 Chronic kidney disease, unspecified; F41.9 Anxiety disorder, unspecified; F32.9 Major depressive disorder, single episode, unspecified; Z88.8 Allergy status to other drugs, medicaments and biological substances; Z88.1 Allergy status to other antibiotic agents; Z79.899 Other long term (current) drug therapy; Z79.82 Long term (current) use of aspirin; X58.XXXA Exposure to other specified factors, initial encounter
CPT/HCPCS: 20610; 99283; J1030; J2001

== ENCOUNTER 2019-02-13 15:47 | Emergency (ER) | payer MEDICARE, MEDICAID ==
[2019-02-13 15:53] VITALS: BP 128/54
[2019-02-13] MEDS ORDERED: Cyclobenzaprine 10 MG Tab PO ONE (16:04)
[2019-02-13] MEDS ORDERED: Ketorolac 60 MG/2 ML SDV IM ONE (16:05)
--- NOTE | 2019-02-13 16:11 | EDM.PDOC ---
ED HPI GENERAL MEDICAL PROBLEM - General Chief Complaint: Back Pain or Injury Stated Complaint: back spasm Time Seen by Provider: 02/13/19 15:50 Source of Information: Reports: Patient History Limitations: Reports: No Limitations - History of Present Illness INITIAL COMMENTS - FREE TEXT/NARRATIVE: Patient is a 63-year-old presents with lower back pain she has been going to physical therapy but now states that she has severe spasm in her lower back with aches rates it 6 out of 10 Onset: Gradual Duration: Day(s): (3 days) Location: Reports: Back Quality: Reports: Ache, Same as Previous Episode, Sharp Severity: Moderate Improves with: Reports: Rest Worsens with: Reports: Movement Context: Reports: Activity Associated Symptoms: Reports: No Other Symptoms Treatments PROCTOLOGIST: Reports: Acetaminophen, NSAIDS Right Posterior Back Pain Score (Numeric/FACES): 10 - Related Data Allergies Allergy/AdvReac Type Severity Reaction Status Date / Time allopurinol Allergy Renal Verified 02/13/19 15:55 Insufficiency amoxicillin [Amoxicillin] Allergy Hypertensio Verified 02/13/19 15:55 n ampicillin Allergy Hypertensio Verified 02/13/19 15:55 n atorvastatin [From Lipitor] Allergy Cannot Verified 02/13/19 15:55 Remember azithromycin Allergy Burning on Verified 02/13/19 15:55 [From Zithromax Z-Dangelo] Urination citalopram [From Celexa] Allergy Hallucinati Verified 02/13/19 15:55 ons codeine Allergy Abdominal Verified 02/13/19 15:55 Pain metaxalone [From Skelaxin] Allergy Itching Verified 02/13/19 15:55 Home Meds: Home Meds LORazepam [Ativan] 1 mg PO TID PRN 09/26/13 [History] Cholecalciferol (Vitamin D3) [Vitamin D3] 2,000 units PO QAM 10/07/13 [History] amLODIPine [Norvasc] 10 mg PO QAM 10/07/13 [History] Magnesium Oxide/Mag AA Chelate [Magnesium] 300 mg PO QPM 12/23/15 [History] Metoprolol Tartrate [Lopressor] 100 mg PO BID 12/23/15 [History] Cyanocobalamin (Vitamin B-12) [Vitamin B-12] 1,000 mcg IM ASDIRECTED 03/15/16 [ History] Omeprazole 20 mg PO BIDAC #60 cap.cr 06/10/16 [Rx] Aspirin 81 mg PO BRK 08/23/16 [History] Multivitamin [Multi-Day Vitamins] 1 each PO DAILY 08/23/16 [History] Zolpidem Tartrate 7.5 mg PO BEDTIME 04/18/17 [History] Ca Carbonate/Vitamin D3/Vit K [Calcium + D Soft Chewable Tab] 1 each PO DAILY [History] Melatonin 7.5 mg PO BEDTIME 07/19/18 [History] Triamcinolone Acetonide [Triamcinolone Acetonide 0.1% Crm] 1 applic TOP BID [History] Past Medical History HEENT History: Reports: Impaired Vision, Sinusitis, Other (See Below) Other HEENT History: Reading glasses. Cardiovascular History: Reports: Arrhythmia, High Cholesterol, Hypertension, PVD , Other (See Below) Other Cardiovascular History: Nonspecific tachycardia, hyperlipidemia controlled with diet with previous gastric bypass. Respiratory History: Reports: Bronchitis, Recurrent, COPD, Intubation, Previous , Pneumonia, Recurrent, Sleep Apnea, Other (See Below) Other Respiratory History: COPD by chest x-ray with negative PFTs, not using oxygen or CPAP for her sleep apnea Gastrointestinal History: Reports: Cholelithiasis, Chronic Constipation, Gastritis, GERD, Hiatal Hernia Genitourinary History: Reports: Chronic Renal Insuffiency, Renal Calculus, UTI, Recurrent, Other (See Below) Other Genitourinary History: Renal insufficiency from allopurinol in the past however resolved at this time, right sided urolithiasis initially diagnosed on with spontaneous passage PHYSICIAN ADVISOR History: Reports: Endometriosis, Other PHYSICIAN ADVISOR History: Endometriosis requiring surgery, surgical menopause, Full term without complications during pregnancies or deliveries Musculoskeletal History: Reports: Arthritis, Back Pain, Chronic, Fibromyalgia, Gout, Neck Pain, Chronic, Osteoarthritis, Osteoporosis, RA Neurological History: Reports: Concussion, Other (See Below) Other Neuro History: 2 previous head concussions initially at about age 19 then in about 1990 Psychiatric History: Reports: Anxiety, Depression, Panic Attack Endocrine/Metabolic History: Reports: Diabetes, Type II, Multinodular Thyroid, Obesity/BMI 30+, Osteoporosis, Other (See Below) Other Endocrine/Metabolic History: AODM previously treated however now diet controlled after gastric bypass, multinodular thyroid diagnosed on 04/18/13 with every 6 month thyroid ultrasound at this time Hematologic History: Reports: B12 Deficiency, Other (See Below) Other Hematologic History: Note Gastric bypass Immunologic History: Reports: None Oncologic (Cancer) History: Reports: None Dermatologic History: Reports: Urticaria, Other (See Below) Other Dermatologic History: Recurrent urticaria since 05/11/16 - Infectious Disease History Infectious Disease History: Reports: Chicken Pox, RSV - Past Surgical History Head Surgeries/Procedures: Reports: None HEENT Surgical History: Reports: Adenoidectomy, Oral Surgery, Tonsillectomy, Other (See Below) Other HEENT Surgeries/Procedures: Tonsillectomy and adenoidectomy at about age 5. Multiple teeth extractions. Cardiovascular Surgical History: Reports: None Respiratory Surgical History: Reports: None GI Surgical History: Reports: Appendectomy, Bariatric Procedure, Cholecystectomy , EGD, Lysis of Adhesions, Other (See Below) Other GI Surgeries/Procedures: Open Cholecystectomy with concurrent appendectomy in 1982. Gastric bypass in June 2010. Last EGD in 2010. Lysis of abdominal adhesions in May 2011. Female Surgical History: Reports: Breast Biopsy, D&C, Endometrial Ablation, Hysterectomy, Salpingo-Oophorectomy, Tubal Ligation, Other (See Below) Other Female Surgeries/Procedures: Breast biopsy for benign disease in 1986. Endometrial ablation with concurrent D&C secondary to endometriosis in 1984. Complete hysterectomy including bilateral salpingo-oophorectomy in 1985 secondary to endometriosis. Tubal ligation at age 22. Endocrine Surgical History: Reports: Thyroid Biopsy, Thyroidectomy, Other (See Below) Other Endocrine Surgeries/Procedures: Left sided partial thyroidectomy secondary to thyroid nodule with benign findings in June 2017. Thyroid biopsy in 2003. Neurological Surgical History: Reports: None Musculoskeletal Surgical History: Reports: Carpal Tunnel, Shoulder Surgery, Other (See Below) Other Musculoskeletal Surgeries/Procedures:: Bilateral carpal tunnel release in 1988. 5 previous left shoulder surgeries with last surgery in September 2017. Oncologic Surgical History: Reports: Biopsy of Breast, Other (See Below) Other Oncologic Surgeries/Procedures: Breast Biopsy for benign disease as above Dermatological Surgical History: Reports: None - Past Imaging History Past Imaging History: Reports: Bone Scan (Sternum and spine on 10/14/12), Cardiac Echo (10/30/15 with ejection fraction of 6065 percent.), CAT Scan (CT of the head on 10/21/16. CT of the abdomen and pelvis on 10/26/14 and 09/17/14.), Cystoscopy (In about 1981), DEXA Scan (07/19/13), Mammogram (Last mammogram on 07/23/17.), PFT (10/23/15), Stress Testing (Cardiolite stress test on 03/18/10 with ejection fraction of 74%.), Ultrasound (Last thyroid ultrasound on 03/02/17.) , Venous Doppler (Venous Doppler study of the right leg on 01/12/17 with previous evaluation of the right leg on 08/16/14.). Denies: Angiography Social & Family History - Family History HEENT: Reports: Macular Degeneration, Other (See Below) Other HEENT Family History: Maternal aunt with macular degeneration. Cardiac: Reports: CAD, AK, Other (See Below) Other Cardiac Family History: Mother with AK in her low 50s. Father with CABG 4 in his mid 60s with no history of AK. Respiratory: Reports: None GI: Reports: GI bleed, PUD, Other (See Below) Other GI Family History: Maternal grandmother with peptic ulcer disease and upper GI bleed in her 70s. : Reports: None OBGYN: Reports: Endometrial Ablation Musculoskeletal: Reports: Arthritis, Gout, Osteoarthritis, Other (See Below) Other Musculoskeletal Family History: Mother with history of gout. Neurological: Reports: None Psychiatric: Reports: None Endocrine/Metabolic: Reports: IDDM, Other (See Below) Other Endocrine/Metabolic Family History: Parents with IDDM. Hematologic: Reports: None Immunologic: Reports: None Dermatologic: Reports: None Oncologic: Reports: Metastatic, Pancreatic, Skin, Other (See Below) Other Oncologic Family History: Mother with fatal pancreatic cancer with hepatic metastases at age 89. Mother with unknown type of skin cancer. 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.) Review of Systems - Review of Systems Review Of Systems: See Below Constitutional: Reports: No Symptoms Eyes: Reports: No Symptoms Ears: Reports: No Symptoms Nose: Reports: No Symptoms Mouth/Throat: Reports: No Symptoms Respiratory: Reports: No Symptoms Cardiovascular: Reports: No Symptoms GI/Abdominal: Reports: No Symptoms Genitourinary: Reports: No Symptoms Musculoskeletal: Reports: Muscle Pain, Muscle Stiffness, Other (Back spasm) Skin: Reports: No Symptoms Neurological: Reports: No Symptoms Psychiatric: Reports: No Symptoms ED EXAM, GENERAL - Physical Exam Exam: See Below Exam Limited By: No Limitations General Appearance: Alert, WD/WN, No Apparent Distress Ears: Normal External Exam, Normal Canal, Hearing Grossly Normal, Normal TMs Ear Exam: Bilateral Ear: Auricle Normal, Canal Normal, TM normal Nose: Normal Inspection, Normal Mucosa, No Blood Throat/Mouth: Normal Inspection, Normal Lips, Normal Teeth, Normal Gums, Normal Oropharynx, Normal Voice, No Airway Compromise Head: Atraumatic, Normocephalic Neck: Normal Inspection, Supple, Non-Tender, Full Range of Motion Respiratory/Chest: No Respiratory Distress Cardiovascular: Normal Peripheral Pulses, Regular Rate, Rhythm, No Edema, No Gallop, No JVD, No Murmur, No Rub GI/Abdominal: Normal Bowel Sounds, Soft, Non-Tender, No Organomegaly, No Distention, No Abnormal Bruit, No Mass (Female) Exam: Deferred Rectal (Female) Exam: Deferred Back Exam: CVA Tenderness (L), CVA Tenderness (R), Decreased Range of Motion, Muscle Spasm, Paraspinal Tenderness Extremities: Normal Inspection, Normal Range of Motion, Non-Tender, Normal Capillary Refill, No Pedal Edema Neurological: Alert, Oriented, CN II-XII Intact, Normal Cognition, Normal Gait, Normal Reflexes, No Motor/Sensory Deficits Psychiatric: Normal Affect, Normal Mood Skin Exam: Warm, Dry, Intact, Normal Color, No Rash Lymphatic: No Adenopathy Course - Vital Signs Last Recorded V/S: Last Vital Signs Temp 97.7 F 02/13/19 15:48 Pulse 71 02/13/19 15:48 Resp 20 02/13/19 15:48 BP 128/54 L 02/13/19 15:48 Pulse Ox 99 02/13/19 15:48 - Orders/Labs/Meds Orders: Active Orders 24 hr Category Date Time Status Cyclobenzaprine [Flexeril] Med 02/13/19 16:04 Once 10 mg PO ONETIME ONE Ketorolac [Toradol] Med 02/13/19 16:05 Once 60 mg IM ONETIME ONE Medication Orders Cyclobenzaprine HCl (Flexeril) 10 mg PO ONETIME ONE Stop: 02/13/19 16:05 Ketorolac Tromethamine (Toradol) 60 mg IM ONETIME ONE Stop: 02/13/19 16:06 Meds: Medications Generic Name Dose Route Start Last Admin Trade Name Karly PRN Reason Stop Dose Admin Cyclobenzaprine HCl 10 mg 02/13/19 16:04 Flexeril PO 02/13/19 16:05 ONETIME ONE Ketorolac Tromethamine 60 mg 02/13/19 16:05 Toradol IM 02/13/19 16:06 ONETIME ONE Departure - Departure Time of Disposition: 16:10 Disposition: Home, Self-Care 01 Condition: Fair Clinical Impression: Spasm of muscle, back - Discharge Information *PRESCRIPTION DRUG MONITORING PROGRAM REVIEWED*: No *COPY OF PRESCRIPTION DRUG MONITORING REPORT IN PATIENT NITISH: No Instructions: Muscle Cramps and Spasms Care Plan Goals: Recent will be treated with Flexeril and Tylenol 10 mg and Toradol 60 IM she will be sent home on Flexeril 10 mg 3 times a day. - My Orders Last 24 Hours: My Active Orders 02/13/19 16:04 Cyclobenzaprine [Flexeril] 10 mg PO ONETIME ONE 02/13/19 16:05 Ketorolac [Toradol] 60 mg IM ONETIME ONE - Assessment/Plan Last 24 Hours: My Active Orders 02/13/19 16:04 Cyclobenzaprine [Flexeril] 10 mg PO ONETIME ONE 02/13/19 16:05 Ketorolac [Toradol] 60 mg IM ONETIME ONE
== END 2019-02-13 17:11 | disposition home or self-care (01) ==
LOC: LL.ED 15:47
DX: M62.830 Muscle spasm of back (principal); I10 Essential (primary) hypertension; E78.00 Pure hypercholesterolemia, unspecified; J44.9 Chronic obstructive pulmonary disease, unspecified; Z79.82 Long term (current) use of aspirin; Z79.899 Other long term (current) drug therapy; Z88.1 Allergy status to other antibiotic agents; Z88.5 Allergy status to narcotic agent; Z88.8 Allergy status to other drugs, medicaments and biological substances
CPT/HCPCS: 96372; 99283; A9270; J1885

== ENCOUNTER → 2019-07-26 | Outpatient (CLI) | payer MEDICARE, MEDICAID ==
[2019-07-26 09:14] LABS: BARBITURATE SCREEN,URINE NEGATIVE (NEGATIVE); BENZODIAZEPINES SCREEN,URINE POSITIVE (NEGATIVE); TCA SCREEN,URINE NEGATIVE (NEGATIVE); THC SCREEN,URINE 50 NG/ML NEGATIVE (NEGATIVE)
== END ==
LOC: LL.CLIN 08:45
PROVIDERS: ATTEND Nurse Practitioner
DX: Z51.81 Encounter for therapeutic drug level monitoring (principal); Z79.899 Other long term (current) drug therapy
CPT/HCPCS: 80305-QW; 99213

== ENCOUNTER → 2019-08-12 | Outpatient (CLI) | payer MEDICARE, MEDICAID | LOC: LL.CLIN 09:57 | PROVIDERS: ATTEND Nurse Practitioner | DX: E53.8 Deficiency of other specified B group vitamins (principal) | CPT/HCPCS: 96372; J3420 ==

== ENCOUNTER 2020-06-21 09:45 | Day surgery (SDC) | payer MEDICARE, MEDICAID ==
[~2020-06-21 09:45] MED LIST: Midazolam 1 MG/ML 2 ML SDV ONE; Propofol 200 MG/20 ML SDV ONE; Sodium Chloride 0.9% 10 ML Syringe FLUSH PRN
[2020-06-21] MEDS ORDERED: Sodium Chloride 0.9% 10 ML Syringe FLUSH PRN (10:15)
[2020-06-21] MEDS: Lactated Ringers 1,000 ML IV SCH (11:41)
--- NOTE | 2020-06-21 11:51 | PCM.PN ---
- General Info Date of Service: 06/21/20 - Review of Systems Systems Review Comment:: 64-year-old female referred for EGD and colonoscopy. She has been having some epigastric abdominal pain and also states that prior studies have identified an ulcer. She also has noticed change in bowel pattern with increasing constipation. Her past history is significant for prior gastric bypass surgery. Her recent history and physical is reviewed and no significant changes are noted. I have discussed the proposed upper and lower endoscopy with the patient. Risks such as but not limited to bleeding and GI injury reviewed. She agrees to proceed. - Patient Data Vitals - Most Recent: Last Vital Signs Temp 98.0 F 06/21/20 11:13 Pulse 57 L 06/21/20 11:13 Resp 18 06/21/20 11:13 BP 119/43 L 06/21/20 11:13 Pulse Ox 97 06/21/20 11:13 Weight - Most Recent: 93.894 kg Lab Results Last 24 Hours: Laboratory Results - last 24 hr 06/21/20 Range/Units 11:27 POC Glucose 80 (65-110) mg/dl Med Orders - Current: Current Medications Lactated Ringer's (Ringers, Lactated) 1,000 mls @ 125 mls/hr IV ASDIRECTED BRIGIDO Last Admin: 06/21/20 11:41 Dose: 125 mls/hr Documented by: Sodium Chloride (Saline Flush) 10 ml FLUSH ASDIRECTED PRN PRN Reason: Keep Vein Open Sodium Chloride (Saline Flush) 10 ml FLUSH ASDIRECTED PRN PRN Reason: Keep Vein Open Discontinued Medications Midazolam HCl (Versed 1 Mg/Ml) Confirm Administered Dose 2 mg .ROUTE .STK-MED ONE Stop: 06/21/20 08:33 Propofol (Diprivan 20 Ml) Confirm Administered Dose 400 mg .ROUTE .STK-MED ONE Stop: 06/21/20 08:34 Sepsis Event Note - Focused Exam Vital Signs: Vital Signs Temp Pulse Resp BP Pulse Ox 06/21/20 11:13 98.0 F 57 L 18 119/43 L 97 - Problem List Review Problem List Initiated/Reviewed/Updated: Yes - My Orders Last 24 Hours: My Active Orders 06/21/20 10:15 Patient Status [ADT] Routine Blood Glucose Check, Bedside [RC] ONETIME Peripheral IV Care [RC] . DIRECTED Verify Patient Consent Obtain [RC] ASDIRECTED Lactated Ringers [Ringers, Lactated] 1,000 ml IV ASDIRECTED Sodium Chloride 0.9% [Saline Flush] 10 ml FLUSH ASDIRECTED PRN Peripheral IV Insertion Adult [OM.PC] Routine - Assessment Assessment:: Epigastric pain Change in bowel pattern - Plan Plan:: EGD and colonoscopy
[2020-06-21] MEDS ORDERED: Ondansetron 4 MG/2 ML SDV IV ONE (12:00)
[2020-06-21] MEDS ORDERED: Lidocaine 2% 5 ML SDV ONE (12:00)
--- NOTE | 2020-06-21 13:01 | PCM.OPNOTE ---
- General Post-Op/Procedure Note Date of Surgery/Procedure: 06/21/20 Operative Procedure(s): EGD with Biopsy and Colonoscopy with Polypectomy Findings: Normal appearing post op upper endoscopy Rectal polyps x2 Moderate sized hemorrhoids Pre Op Diagnosis: Epigastric pain. Change in bowel habits Post-Op Diagnosis: Normal Post Op Upper Endoscopy. Colon Polyps. Hemorrhoids Anesthesia Technique: MAC Primary Surgeon: Naresh Townsend Pathology: Biopsies taken during upper endoscopy Rectal Polyps EBL in mLs: 3 Complications: None Condition: Good
--- NOTE | 2020-06-21 14:10 | OR ---
Date of Procedure: 06/21/2020 PREOPERATIVE DIAGNOSIS: Epigastric pain, change in bowel habits. POSTOPERATIVE DIAGNOSES: Normal postop upper endoscopy, rectal polyps, and hemorrhoids. OPERATIONS PERFORMED: Esophagogastroduodenoscopy with biopsy and colonoscopy with polypectomy. INDICATIONS FOR SURGERY: This 64-year-old female has been having symptoms of upper abdominal pain. She does have a history of prior gastric bypass surgery. She has also noted change in her bowel pattern with increasing constipation recently. FINDINGS: On upper endoscopy, the patient's postop anatomy appears in good condition. No ulcers are seen. The gastric pouch seems of normal size. There is some slight irregularity along the gastrojejunal anastomosis, but no ulcerations were seen. The anastomosis was widely patent without sign of stenosis. The jejunal limb appears normal down to the area of the distal anastomosis. On colonoscopy, the patient has 2 polyps in the rectum approximately 10 cm from the anal verge. These are both semipedunculated polyps; one is 1 cm in size, the other is 8 mm in size. The remainder of the colon appears normal. DESCRIPTION OF PROCEDURE: The patient was taken to the operating room. She was given intravenous sedation. With her in the left lateral decubitus position, the Olympus gastroscope was advanced through a mouth guard into the oral cavity. Under direct visualization, the scope was advanced down through the esophagus into the gastric pouch and then down through the jejunal limb to the area of the jejunojejunal anastomosis. This anastomosis appeared normal. The jejunal limb also appeared normal as it is examined. Random biopsies of the jejunum were taken because of the patient's symptoms. The region of the gastrojejunal anastomosis was carefully examined. There was some slight irregularity along this area, although there was no stenosis. The anastomosis itself was biopsied and the gastric pouch was carefully examined and biopsies of the gastric pouch were taken to rule out H. pylori. The GE junction and esophagus were then re- examined as the scope was removed. Attention was turned to colonoscopy. Digital rectal exam is performed, showing no rectal masses. An Olympus colonoscope was inserted into the rectum and retroflexed examination of the rectal canal was performed. In the rectum, the above-described 2 polyps were identified. These were removed with a cautery snare, retrieved, and submitted as a single specimen. The scope was then carefully advanced under direct visualization through the entire length of the colon until the cecum was reached. Cecal acquisition was confirmed by noting the normal internal cecal anatomy including the appendiceal orifice and ileocecal valve. The light was also noted to transilluminate the abdominal wall in the right lower quadrant. After examining the cecum, the scope was slowly withdrawn sequentially re-examining the colonic segments until the entire colon and rectum had been fully examined. The scope was removed and the patient was taken from the operating room in satisfactory condition. ESTIMATED BLOOD LOSS: 3 mL. COMPLICATIONS: None. PROGNOSIS: Good. CECILLE Townsend MD /[id number]
[2020-06-21 15:53] VITALS: BP 127/56; PULSE 56
== END 2020-06-21 14:05 | disposition home or self-care (01) ==
LOC: LL.SDS 09:45
PROVIDERS: ATTEND Surgery
DX: D12.8 Benign neoplasm of rectum (principal); K29.50 Unspecified chronic gastritis without bleeding; K31.89 Other diseases of stomach and duodenum; I10 Essential (primary) hypertension; K21.9 Gastro-esophageal reflux disease without esophagitis; J44.9 Chronic obstructive pulmonary disease, unspecified; E11.40 Type 2 diabetes mellitus with diabetic neuropathy, unspecified; E78.5 Hyperlipidemia, unspecified; K59.09 Other constipation; G47.30 Sleep apnea, unspecified; G47.00 Insomnia, unspecified; E66.9 Obesity, unspecified; E78.49 Other hyperlipidemia; Z79.899 Other long term (current) drug therapy; Z88.1 Allergy status to other antibiotic agents; Z88.0 Allergy status to penicillin; Z88.5 Allergy status to narcotic agent; Z88.8 Allergy status to other drugs, medicaments and biological substances; Z68.35 Body mass index [BMI] 35.0-35.9, adult; Z98.84 Bariatric surgery status; Z98.0 Intestinal bypass and anastomosis status
CPT/HCPCS: 00813; 82962; J2001; J2250; J2405; J2704; J7120

== ENCOUNTER 2020-06-27 23:50 | Emergency (ER) | payer MEDICARE, MEDICAID ==
[2020-06-28] MEDS ORDERED: Sodium Chloride 0.9% 10 ML Syringe FLUSH PRN (00:01)
[2020-06-28 00:08] VITALS: BP 140/61; PULSE 67
[2020-06-28 00:50] LABS: CHLORIDE,CL 105 mmol/L (98-107); SODIUM,NA 138 mmol/L (136-145)
[2020-06-28] MEDS ORDERED: Ketorolac 60 MG/2 ML SDV IM ONE (01:03)
[2020-06-28] MEDS ORDERED: Ondansetron 4 MG Tab.DIS PO ONE (01:03)
[2020-06-28] MEDS ORDERED: Lactulose Soln 10 GM/15 ML 30 ML UD Cup PO ONE (01:03)
[2020-06-28] MEDS ORDERED: Magnesium Oxide 400 MG Tab PO ONE (01:04)
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
== END 2020-06-28 01:35 | disposition home or self-care (01) ==
LOC: LL.ED 23:50
DX: R10.84 Generalized abdominal pain (principal); E83.42 Hypomagnesemia; I48.91 Unspecified atrial fibrillation; J44.9 Chronic obstructive pulmonary disease, unspecified; M10.9 Gout, unspecified; F41.9 Anxiety disorder, unspecified; E11.22 Type 2 diabetes mellitus with diabetic chronic kidney disease; N18.9 Chronic kidney disease, unspecified; F32.9 Major depressive disorder, single episode, unspecified; Z90.89 Acquired absence of other organs; Z90.710 Acquired absence of both cervix and uterus; Z90.722 Acquired absence of ovaries, bilateral; Z98.890 Other specified postprocedural states; Z88.8 Allergy status to other drugs, medicaments and biological substances; Z88.1 Allergy status to other antibiotic agents; Z88.5 Allergy status to narcotic agent; Z79.82 Long term (current) use of aspirin; Z79.899 Other long term (current) drug therapy
CPT/HCPCS: 36415; 74019; 80053; 81001; 82150; 83605; 83690; 83735; 85025; 96372; 99283; 99284-25; A9270-GY; J1885

== ENCOUNTER 2021-03-01 17:44 | Emergency (ER) | payer MEDICARE, MEDICAID ==
[2021-03-01 17:55] VITALS: BP 152/72; PULSE 77
[2021-03-01] MEDS ORDERED: Sodium Chloride 0.9% 10 ML Syringe FLUSH PRN (18:13)
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
[2021-03-01 18:55] LABS: CHLORIDE,CL 107 mmol/L (98-107); SODIUM,NA 143 mmol/L (136-145)
[2021-03-01 19:00] LABS: PTT,PARTIAL THROMBOPLSTIN TIME 26.4 SEC (24.5-32.8)
[2021-03-01] MEDS: methylPREDNISolone Sodium Succinate 125 MG/2 ML SDV IM ONE (19:35)
[2021-03-01] MEDS: Ketorolac 60 MG/2 ML SDV IM ONE (20:06)
== END 2021-03-01 20:25 | disposition home or self-care (01) ==
LOC: LL.ED 17:44
DX: R07.89 Other chest pain (principal); I48.91 Unspecified atrial fibrillation; J44.9 Chronic obstructive pulmonary disease, unspecified; N18.9 Chronic kidney disease, unspecified; E11.22 Type 2 diabetes mellitus with diabetic chronic kidney disease; M19.90 Unspecified osteoarthritis, unspecified site; Z79.82 Long term (current) use of aspirin; Z88.1 Allergy status to other antibiotic agents; Z88.5 Allergy status to narcotic agent; Z79.899 Other long term (current) drug therapy; Z88.8 Allergy status to other drugs, medicaments and biological substances
CPT/HCPCS: 36415; 71045; 80053; 82550; 82553; 83735; 84484; 85025; 85379; 85610; 85730; 93005; 93010; 96372; 99284; 99285-25; J1885; J2930

== ENCOUNTER 2021-10-27 03:57 | Emergency (ER) | payer MEDICARE, MEDICAID ==
[2021-10-27 04:43] LABS: ANION GAP 10.9 meq/L (7-15); CHLORIDE,CL 106 mmol/L (98-107); SODIUM,NA 141 mmol/L (136-145)
[2021-10-27 05:01] LABS: RESPIRATORY SYNCYTIAL VIR NAA NEGATIVE (NEGATIVE)
[2021-10-27] MEDS ORDERED: Metoprolol Tartrate 50 MG Tab PO ONE (05:12)
[2021-10-27] MEDS ORDERED: amLODIPine 5 MG Tab ONE (05:22)
[2021-10-27 07:03] LABS: CORONAVIRUS COVID-19 NAA POSITIVE (NEGATIVE)
[2021-10-27] MEDS ORDERED: amLODIPine 5 MG Tab PO ONE (08:00)
[2021-10-27 10:05] VITALS: BP 123/56; PULSE 81
== END 2021-10-27 10:20 | disposition home or self-care (01) ==
LOC: LL.ED 03:57
DX: U07.1 COVID-19 (principal); I48.91 Unspecified atrial fibrillation; J44.9 Chronic obstructive pulmonary disease, unspecified; E11.22 Type 2 diabetes mellitus with diabetic chronic kidney disease; N18.9 Chronic kidney disease, unspecified; M10.9 Gout, unspecified; E11.9 Type 2 diabetes mellitus without complications; Z88.8 Allergy status to other drugs, medicaments and biological substances; Z88.0 Allergy status to penicillin; Z88.1 Allergy status to other antibiotic agents; Z88.5 Allergy status to narcotic agent; Z79.82 Long term (current) use of aspirin; Z79.899 Other long term (current) drug therapy
CPT/HCPCS: 0241U; 36415; 71046; 80053; 81001; 84484; 85025; 93005; 93010; 99284; 99284-25; A9270-GY

== ENCOUNTER 2021-11-25 17:10 | Emergency (ER) | payer MEDICARE, MEDICAID ==
[2021-11-25 18:14] LABS: CHLORIDE,CL 108 mmol/L (98-107); SODIUM,NA 143 mmol/L (136-145)
[2021-11-25 18:15] LABS: ANION GAP 15.6 meq/L (7-15)
[2021-11-25] MEDS: Orphenadrine 60 MG/2 ML Inj IM ONE (18:39)
[2021-11-25 19:31] VITALS: PULSE 75
[2021-11-25 19:32] VITALS: BP 121/56
== END 2021-11-25 18:45 | disposition home or self-care (01) ==
LOC: LL.ED 17:10
DX: R07.89 Other chest pain (principal); I48.91 Unspecified atrial fibrillation; J44.9 Chronic obstructive pulmonary disease, unspecified; E11.22 Type 2 diabetes mellitus with diabetic chronic kidney disease; N18.9 Chronic kidney disease, unspecified; M19.90 Unspecified osteoarthritis, unspecified site; M10.9 Gout, unspecified; Z88.8 Allergy status to other drugs, medicaments and biological substances; Z88.0 Allergy status to penicillin; Z88.1 Allergy status to other antibiotic agents; Z88.5 Allergy status to narcotic agent; Z79.82 Long term (current) use of aspirin; Z79.899 Other long term (current) drug therapy
CPT/HCPCS: 36415; 71046; 80053; 84484; 85025; 85379; 93005; 96372; 99284; 99285-25; J2360

== ENCOUNTER 2022-06-02 07:46 | Emergency (ER) | payer MEDICARE, OTHER, MEDICAID ==
[2022-06-02 08:50] LABS: CORONAVIRUS COVID-19 NAA NEGATIVE (NEGATIVE); RESPIRATORY SYNCYTIAL VIR NAA NEGATIVE (NEGATIVE)
[2022-06-02 09:00] LABS: ANION GAP 14.2 meq/L (7-15)
[2022-06-02 09:03] VITALS: BP 149/83; PULSE 77
[2022-06-02] MEDS: Triamcinolone Acetonide 40 MG/ML 1 ML SDV INJECT ONE (10:00)
== END 2022-06-02 10:10 | disposition home or self-care (01) ==
LOC: LL.ED 07:46
DX: R05.2 Subacute cough (principal); J44.9 Chronic obstructive pulmonary disease, unspecified; E11.9 Type 2 diabetes mellitus without complications; Z88.8 Allergy status to other drugs, medicaments and biological substances; Z88.6 Allergy status to analgesic agent; Z88.0 Allergy status to penicillin; Z88.1 Allergy status to other antibiotic agents; Z88.5 Allergy status to narcotic agent; Z79.899 Other long term (current) drug therapy; Z79.82 Long term (current) use of aspirin; Z86.16 Personal history of COVID-19; Z90.49 Acquired absence of other specified parts of digestive tract; Z90.710 Acquired absence of both cervix and uterus; Z20.822 Contact with and (suspected) exposure to COVID-19
CPT/HCPCS: 0241U; 36415; 71045; 80053; 85025; 96372; 99283; 99284; J3301

== ENCOUNTER 2022-09-20 09:59 | Emergency (ER) | payer MEDICARE, OTHER, MEDICAID ==
[2022-09-20 10:06] VITALS: BP 137/65; PULSE 61
[2022-09-20 11:06] LABS: ANION GAP 6.9 meq/L (7-15)
== END 2022-09-20 12:45 | disposition home or self-care (01) ==
LOC: LL.ED 09:59
DX: R10.84 Generalized abdominal pain (principal); I48.91 Unspecified atrial fibrillation; J44.9 Chronic obstructive pulmonary disease, unspecified; K21.9 Gastro-esophageal reflux disease without esophagitis; E11.22 Type 2 diabetes mellitus with diabetic chronic kidney disease; N18.9 Chronic kidney disease, unspecified; M06.9 Rheumatoid arthritis, unspecified; Z88.8 Allergy status to other drugs, medicaments and biological substances; Z88.0 Allergy status to penicillin; Z88.1 Allergy status to other antibiotic agents; Z88.5 Allergy status to narcotic agent; Z79.82 Long term (current) use of aspirin; Z79.899 Other long term (current) drug therapy
CPT/HCPCS: 36415; 74019; 80053; 81001; 83605; 85025; 87086; 99284

== ENCOUNTER 2023-01-13 14:20 | Emergency (ER) | payer MEDICARE, OTHER, MEDICAID ==
[2023-01-13] MEDS ORDERED: Sodium Chloride 0.9% 10 ML Syringe FLUSH PRN (14:47)
[2023-01-13 15:00] LABS: CHLORIDE,CL 104 mmol/L (98-107); SODIUM,NA 142 mmol/L (136-145)
[2023-01-13 15:21] LABS: ESTIMATED GFR 84 mL/min (>=60)
[2023-01-13] MEDS: Losartan 25 MG Tab PO ONE (15:48)
[2023-01-13 16:00] LABS: CORONAVIRUS COVID-19 NAA NEGATIVE (NEGATIVE); RESPIRATORY SYNCYTIAL VIR NAA NEGATIVE (NEGATIVE)
[2023-01-13 16:26] VITALS: BP 130/71; PULSE 64
[2023-01-13] MEDS: Ketorolac 30 MG/ML SDV IVPUSH ONE (16:35)
== END 2023-01-13 17:06 | disposition home or self-care (01) ==
LOC: LL.ED 14:20
DX: R10.11 Right upper quadrant pain (principal); R10.12 Left upper quadrant pain; R10.31 Right lower quadrant pain; R10.32 Left lower quadrant pain; R10.13 Epigastric pain; G89.29 Other chronic pain; I12.9 Hypertensive chronic kidney disease with stage 1 through stage 4 chronic kidney disease, or unspecified chronic kidney disease; N18.9 Chronic kidney disease, unspecified; F41.9 Anxiety disorder, unspecified; K21.9 Gastro-esophageal reflux disease without esophagitis; M19.90 Unspecified osteoarthritis, unspecified site; J44.9 Chronic obstructive pulmonary disease, unspecified; E11.42 Type 2 diabetes mellitus with diabetic polyneuropathy; I48.91 Unspecified atrial fibrillation; Z86.16 Personal history of COVID-19; Z79.82 Long term (current) use of aspirin; Z79.899 Other long term (current) drug therapy; Z88.5 Allergy status to narcotic agent; Z88.8 Allergy status to other drugs, medicaments and biological substances; Z88.1 Allergy status to other antibiotic agents
CPT/HCPCS: 0241U; 36415; 74022; 80053; 81001; 83605; 83735; 83880; 84484; 85025; 93005; 93010; 96374; 99284; 99284-25; A9270-GY; J1885

== ENCOUNTER 2023-02-21 19:20 | Emergency (ER) | payer MEDICARE, OTHER, MEDICAID ==
[2023-02-21 19:37] VITALS: BP 137/66; PULSE 78
[2023-02-21] MEDS ORDERED: Ketorolac 30 MG/ML SDV IM ONE (20:14)
== END 2023-02-21 21:40 | disposition home or self-care (01) ==
LOC: SUPCPDRO 19:20 → LL.ED 19:20
DX: M25.552 Pain in left hip (principal); I48.91 Unspecified atrial fibrillation; I10 Essential (primary) hypertension; E78.00 Pure hypercholesterolemia, unspecified; E11.9 Type 2 diabetes mellitus without complications; E66.9 Obesity, unspecified; Z68.33 Body mass index [BMI] 33.0-33.9, adult; Z88.0 Allergy status to penicillin; Z88.5 Allergy status to narcotic agent; Z88.8 Allergy status to other drugs, medicaments and biological substances; Z79.02 Long term (current) use of antithrombotics/antiplatelets; Z79.899 Other long term (current) drug therapy; Z79.82 Long term (current) use of aspirin; Z86.16 Personal history of COVID-19
CPT/HCPCS: 96372; 99284; J1885

== ENCOUNTER 2024-05-08 06:49 | Emergency (ER) | payer MEDICARE, MEDICAID ==
[2024-05-08 06:53] VITALS: BP 131/57; PULSE 69
[2024-05-08 07:53] LABS: BASOPHILS ABSOLUTE AUTO 0.04 K/uL (0.00-0.20); BASOPHILS PERCENT AUTO 0.4 % (0.0-2.0); EOSINOPHILS ABSOLUTE AUTO 0.55 K/uL (0.00-0.50); EOSINOPHILS PERCENT AUTO 5.9 % (0.0-5.0); HEMATOCRIT 39.8 % (34.0-46.0); LYMPHOCYTES ABSOLUTE AUTO 1.79 K/uL (0.50-3.50); LYMPHOCYTES PERCENT AUTO 19.3 % (10.0-50.0); MEAN CORPUSCULAR HEMOGLOBIN 29.7 pg (28.2-33.3); MEAN CORPUSCULAR HGB CONC 32.7 g/dL (31.7-36.0); MEAN CORPUSCULAR VOLUME 91.1 fL (84.0-98.0); MONOCYTES ABSOLUTE AUTO 0.66 K/uL (0.00-1.00); MONOCYTES PERCENT AUTO 7.1 % (2.0-14.0); NEUTROPHILS ABSOLUTE AUTO 6.22 K/uL (1.40-7.00); NEUTROPHILS PERCENT AUTO 67.3 % (45.0-80.0); PLATELET COUNT,PLT 229 K/uL (150-350); RED BLOOD CELL COUNT 4.37 M/uL (3.77-5.09); RED CELL DISTRIBUTION WIDTH 13.8 % (11.2-14.1); WHITE BLOOD CELL COUNT,WBC 9.3 K/uL (4.0-10.2)
[2024-05-08] MEDS: cefTRIAXone 1 GM, Lidocaine 1% 2.1 ML IM ONE (08:18)
== END 2024-05-08 08:35 | disposition home or self-care (01) ==
LOC: LL.ED 06:49
DX: L03.115 Cellulitis of right lower limb (principal); I10 Essential (primary) hypertension; M19.90 Unspecified osteoarthritis, unspecified site; E11.9 Type 2 diabetes mellitus without complications; E66.9 Obesity, unspecified; Z86.16 Personal history of COVID-19; Z79.82 Long term (current) use of aspirin; Z79.899 Other long term (current) drug therapy; Z88.0 Allergy status to penicillin; Z88.1 Allergy status to other antibiotic agents; Z88.8 Allergy status to other drugs, medicaments and biological substances; Z88.5 Allergy status to narcotic agent
CPT/HCPCS: 36415; 73620-RT; 84550; 85025; 96372; 99283; 99284; J0696; J3490

== ENCOUNTER 2024-05-09 06:30 | Emergency (ER) | payer MEDICARE, MEDICAID ==
[2024-05-09 06:35] VITALS: BP 135/68; PULSE 76
== END 2024-05-09 07:36 | disposition home or self-care (01) ==
LOC: LL.ED 06:30
DX: M79.671 Pain in right foot (principal); M79.89 Other specified soft tissue disorders; I10 Essential (primary) hypertension; E11.9 Type 2 diabetes mellitus without complications; E66.9 Obesity, unspecified; Z90.49 Acquired absence of other specified parts of digestive tract; Z90.710 Acquired absence of both cervix and uterus; Z79.82 Long term (current) use of aspirin; Z79.899 Other long term (current) drug therapy; Z88.0 Allergy status to penicillin; Z88.1 Allergy status to other antibiotic agents; Z88.5 Allergy status to narcotic agent; Z88.8 Allergy status to other drugs, medicaments and biological substances; Z91.011 Allergy to milk products
CPT/HCPCS: 99283